=== PATIENT | male | born 1955 | race Caucasian/White ===

== ENCOUNTER → 2020-10-07 | Day surgery (SDC) | payer MEDICARE, OTHER ==
[~2020-10-07] MED LIST: DIGITEK125 MCG PO; ELIQUIS5 MG PO; METOPROLOL SUCC50 MG PO; NORVASC5 MG PO; PRINIVIL10 MG PO; TOPROL XL 50 MG50 MG PO
[2020-10-07 07:27] LABS: HCT 50.3 % (42.0-52.0); HGB 17.5 g/dl (13.2-18.0); MCH 31.7 pg (25.0-31.0); MCHC 34.8 g/dL (32.0-36.0); MCV 91.1 fL (78.0-100.0); MPV 12.3 fL (6.0-9.5); RBC 5.52 M/uL (4.70-6.00); RDW 13.1 % (11.5-14.0); WBC 9.1 K/uL (4.0-10.5)
[2020-10-07 07:46] LABS: ALBUMIN 3.8 g/dL (3.4-5.0); BILIRUBIN - TOTAL 1.2 mg/dL (0.2-1.0); BUN/CREAT RATIO (CALC) 15.6 RATIO; CREATININE 0.9 mg/dL (0.67-1.17); TOTAL PROTEIN 7.8 g/dL (6.4-8.2)
== END | disposition home or self-care (01) ==
LOC: FAS 06:50
PROVIDERS: Surgery
DX: Z12.11 Encounter for screening for malignant neoplasm of colon (principal); D12.6 Benign neoplasm of colon, unspecified; E78.5 Hyperlipidemia, unspecified; I10 Essential (primary) hypertension; Z95.0 Presence of cardiac pacemaker; I49.5 Sick sinus syndrome; G47.30 Sleep apnea, unspecified; Z79.01 Long term (current) use of anticoagulants; Z86.010 Personal history of colon polyps; Z20.822 Contact with and (suspected) exposure to COVID-19; Z79.899 Other long term (current) drug therapy; Z82.49 Family history of ischemic heart disease and other diseases of the circulatory system; Z77.22 Contact with and (suspected) exposure to environmental tobacco smoke (acute) (chronic)
CPT/HCPCS: 36415; 80053; J2704; J7120